=== PATIENT | female | born 1985 | race Hispanic/Latino ===

== ENCOUNTER 2019-04-19 14:02 | Outpatient (CLI) | payer MEDICAID ==
--- NOTE | 2019-04-19 14:52 | ULT ---
PELVIC ULTRASOUND: HISTORY: Left lower abdominal wall swelling. TECHNIQUE: Transabdominal imaging of the pelvis is performed. Ovaries are interrogated with grayscale, color katja w, Doppler imaging and spectral waveform analysis. FINDINGS: Uterus is identified, with a normal echotexture. No myometrial masses. Uterus measures 3.3 x 8.3 x 5. 1 cm. Endometrium: Incompletely evaluated. At the level of fundus, endometrial diameter is 0.35 cm. Lower uterine segment: Unremarkable. Right ovary: Normal echotexture measuring 2.2 x 3.5 x 2.7 cm. Left ovary: Not appreciated. Personal Security Specialist suggests a possible left ovary but it appears to be superfic ial to the anterior abdominal wall. This hypoechoic focus measures 2.0 x 0.9 x 2.4 cm. On the transverse image, this lesion does not appear to correspond to an ovary. Ovarian Doppler: Vascular flow to the right ovary. Targeted imaging in the region of concern in the lower left abdominal wall does not demonstrate any s onographic abnormality. Comparison of the contralateral side is essentially symmetric. IMPRESSION: 1. No sonographic evidence of an abdominal wall defect in the region of concern. Further evaluation w ith CT if clinically warranted. 2. Hypoechoic focus in the left aspect of the pelvis which appears to be superficial to the anterior abdominal rectus muscle. This lesion is labeled as the ovary by the network pricing consultant but appears to be atypical in location. Findings may represent a lymph node or a nonspecific collection. Further evalua tion with CT is recommended. 3. Grossly unremarkable pelvic ultrasound. CODE T Transcribed Date/Time: 04/19/2019 3:02 PM
== END 2019-04-19 14:03 | disposition home or self-care (01) ==
LOC: SCSULT 14:02
PROVIDERS: ATTEND Family Medicine
DX: R19.00 Intra-abdominal and pelvic swelling, mass and lump, unspecified site (principal)
CPT/HCPCS: 76856; 93976